=== PATIENT | female | born 1985 | race Caucasian/White ===

== ENCOUNTER 2018-11-04 23:22 | Emergency (ER) | payer MEDICAID, OTHER ==
[~2018-11-04] VITALS: Ht 162.6 cm; Wt 90.7 kg
[~2018-11-04 23:22] MED LIST: CYCL10TA9 PO; DICL75TA2 PO; TRM50T PO
[2018-11-04] MEDS ORDERED: morphine INJ 10 MG/ML 1ML (SYR OR VIAL) IM STA (23:39)
--- NOTE | 2018-11-04 23:46 | ED Lower Extremity ---
General Chief Complaint: Lower Extremity Stated Complaint: FELL AND POSSIBLY BROKE RT FIRST TOE Source: patient History of Present Illness Date Seen by Provider: November 04, 2018 Time Seen by Provider: 23:30 Initial Comments 32-year-old female presenting with complaints of right big toe pain. She states that she was going up steps when she missed a step and hit her toe. She has severe pain in that toe now. She had her friend drive her to the emergency department immediately. She has not taken anything for the pain. She states that the pain is very severe and is crying nonstop. She reports that she has had other broken bones in that this feels worse. She denies taking any chronic medications or having any allergies. Onset: just prior to arrival Severity: severe Pain/Injury Location: right 1st toe Modifying Factors: Worse With Movement Allergies and Home Medications Allergies Coded Allergies: No Known Drug Allergies (Unverified , 11/04/18) Home Medications Cyclobenzaprine Hcl 10 Mg Tablet, 1 EACH PO BID, (Reported) Diclofenac Sodium 75 Mg Tablet.dr, 75 MG PO BID, (Reported) Hydrocodone Bit/Acetaminophen 1 Tab Tab, 1 EACH PO Q6H PRN for PAIN-SEVERE For broken toe Prescribed by: MIGUELITO NGO on 11/05/18 0049 Tramadol Hcl 50 Mg Tab, 50 MG PO Q4-6HOURS PRN FOR PAIN Prescribed by: VALDEMAR OTOOLE on 04/22/11 0845 Patient Home Medication List Home Medication List Reviewed: Yes Review of Systems Constitutional: no symptoms reported EENTM: no symptoms reported Respiratory: no symptoms reported Cardiovascular: no symptoms reported Gastrointestinal: no symptoms reported Genitourinary: no symptoms reported Musculoskeletal: see HPI Skin: no symptoms reported Psychiatric/Neurological: Anxiety Past Gjausks-Lkgexc-Faalfw Hx Past Med/Social Hx: Reviewed Nursing Past Med/Soc Hx Patient Social History Recent Foreign Travel: No Contact w/Someone Who Travel: No Physical Exam Vital Signs Vital Signs - First Documented 11/04/18 23:31 Temp 99.9 Pulse 130 Resp 24 B/P (MAP) 150/113 (125) Pulse Ox 99 O2 Delivery Room Air Capillary Refill : Height, Weight, BMI Height: '" Weight: lbs. oz. kg; BMI Method:Stated General Appearance: WD/WN, severe distress (crying constantly complaining of pain in the right big toe) HEENT: PERRL/EOMI Neck: non-tender, supple Cardiovascular: normal peripheral pulses, tachycardia Respiratory: chest non-tender, lungs clear Feet: right foot bone tenderness (right big toe), right foot deformity ( angulation to the proximal portion of the right big toe), right foot limited range of motion (right big toe), right foot pain (right big toe) Neurologic/Tendon: normal sensation, responds to pain Neurologic/Psychiatric: alert, oriented x 3 Skin: normal color, warm/dry Progress/Results/Core Measures Results/Orders My Orders Orders - MIGUELITO NGO MD Morphine Injection (Morphine Injection (11/04/18 23:39) Elevate Affected Extremity (11/04/18 23:40) Foot 3 View Right (11/04/18 23:40) Fentanyl Injection (Sublimaze Injection (11/05/18 00:31) Rx-Hydrocodone/Apap 5-325 Mg (Rx-Vicodin (11/05/18 00:45) Crutches (11/05/18 00:39) Orthopedic Equiment (11/05/18 00:39) Fentanyl Injection (Sublimaze Injection (11/05/18 00:37) Rx-Hydrocodone/Apap 5-325 Mg (Rx-Vicodin (11/05/18 00:43) Vital Signs/I&O 11/04/18 11/05/18 23:31 01:05 Temp 99.9 98.9 Pulse 130 110 Resp 24 24 B/P (MAP) 150/113 (125) 136/98 (111) Pulse Ox 99 99 O2 Delivery Room Air Room Air Progress Progress Note #1: Progress Note order morphine 4 mg IM for her pain and check xrays of the foot and big toe. elevate extremity to help with pain and swelling Progress Note #2: Time: 00:24 Progress Note Reviewed with pt that her films show fracture of the proximal phalanx of her big toe. She states that Morphine does not help her pain and messes with her head more than help her pain so she requests something else for pain. Will try a dose of fentanyl and discharge on Hydrocodone 5 mg. Counseled on non weight bearing and to check with Ortho or Podiatry within 1 week about her fracture. In the meantime elevate her foot and use ice for pain and swelling. Hydrocodone for severe pain Diagnostic Imaging Diagonstic Imaging: Xray Plain Films/CT/US/NM/MRI: other (right foot) Comments spiral minimally displace fracture of the proximal phalanx of the right big toe. This does not appear to extend into the articulating surfaces. Reviewed: Reviewed by Me Departure Impression Primary Impression: Displaced fracture of proximal phalanx of right great toe, initial encounter for closed fracture Disposition: HOME, SELF-CARE Condition: Stable Departure-Patient Inst. Decision time for Depature: 00:50 Referrals: ADAM TELLES,LOCAL PHYSICIAN (PCP) Primary Care Physician Patient Instructions: Toe Fracture (DC) Add. Discharge Instructions: Follow up for the fractured toe within a week. Dr. Adam Telles with [place] [address] States is employee relation manager for [facility] and you could follow up with him or you could call Laith Durbin and see him about this fracture if you want since you have seen him before for the fracture in your hand. Try to keep your foot elevated above your waist level to help with pain and swelling. Ice 15-20 minutes every few hours will help with pain and swelling. Check with clinic for continued pain and problems. Remain non weight bearing on your right foot and use the boot to protect your toe and keep from walking on the foot. Use crutches to remain non weight bearing on your right foot. Use the Hydrocodone for severe pain. Avoid taking Acetaminophen or Tylenol while on the Hydrocodone as it already includes this in the medicine. All discharge instructions reviewed with patient and/or family. Voiced understanding. Scripts Hydrocodone Bit/Acetaminophen (Hydrocodone/Acetaminophen 5/325mg Tablet) 1 Tab Tab 1 EACH PO Q6H PRN for PAIN-SEVERE MDD 4 for 5 Days, #20 TAB 0 Refills For broken toe Prov: MIGUELITO NGO MD 11/05/18 MIGUELITO NGO MD November 04, 2018 23:46
[2018-11-05] MEDS ORDERED: fentaNYL INJECTION 100 MCG/2 ML AMP IM STA (00:31)
[2018-11-05] MEDS ORDERED: fentaNYL INJECTION 100 MCG/2 ML AMP ONE (00:37)
[2018-11-05] MEDS ORDERED: RX-HYDROCODONE/APAP 5/325 MG #4 TAB PK PO ONE (00:43)
[2018-11-05] MEDS ORDERED: RX-HYDROCODONE/APAP 5/325 MG #4 TAB PK PO PRN (00:45)
[2018-11-05] MEDS ORDERED: ACHD5005 PO (00:49)
[2018-11-05 01:05] VITALS: BP 136/98
--- NOTE | 2018-11-05 07:39 | Diagnostic Imaging Report ---
Indication: Stubbed right big toe going upstairs Findings: 3 views of the right foot demonstrates a mildly displaced oblique fracture through the proximal phalanx of the great toe. The distal phalanx appears normal. No foreign bodies are present. Impression: There is a mildly displaced oblique fracture through the proximal phalanx of the right great toe. Dictated by: Dictated on workstation # [id number]
== END 2018-11-05 01:05 | disposition home or self-care (01) ==
LOC: EDUNIT# 23:22 → ER FS 23:25
DX: S92.411A Displaced fracture of proximal phalanx of right great toe, initial encounter for closed fracture (principal); W10.8XXA Fall (on) (from) other stairs and steps, initial encounter; W22.09XA Striking against other stationary object, initial encounter
CPT/HCPCS: 73630

== ENCOUNTER 2020-12-24 18:58 | Inpatient (IN) | payer SELFPAY ==
[~2020-12-24] VITALS: Ht 164.5 cm; Wt 111.9 kg
[~2020-12-24 18:58] MED LIST changes: +ACHD5005 PO
[2020-12-24] MEDS ORDERED: LORazepam INJ 2 MG/ML (ATIVAN) VIAL IVP STA ×2 (19:05→22:15)
[2020-12-24] MEDS ORDERED: NS IV 1000 ML 1,000 ML IV STA ×2 (19:05→21:12)
--- NOTE | 2020-12-24 19:09 | ED General ---
General Source of Information: Patient Exam Limitations: Intoxication (methamphetamines and Seroquel) History of Present Illness Date Seen by Provider: Dec 24, 2020 Time Seen by Provider: 18:59 Initial Comments 35-year-old female presenting with complaints of methamphetamine abuse and Seroquel overdose. She was dropped off by a friend that stopped with her long enough to get her out of the car at the [address] and then drove off. She is anxious and agitated. She is not answering questions about if the medicines she took were for self harm or suicide attempt or just recreational use. She has complaint of muscle spasm and pain in legs and keeps jerking her legs and moving her arms and legs all over the bed thrashing around on the bed. Unable to obtain answers to history or more information about her presentation due to her intoxication from methamphetamines and drug overdose. Allergies and Home Medications Allergies Coded Allergies: No Known Drug Allergies (Unverified , 11/04/18) Home Medications Cyclobenzaprine Hcl 10 Mg Tablet, 1 EACH PO BID, (Reported) Diclofenac Sodium 75 Mg Tablet.dr, 75 MG PO BID, (Reported) Hydrocodone Bit/Acetaminophen 1 Tab Tab, 1 EACH PO Q6H PRN for PAIN-SEVERE For broken toe Prescribed by: MIGUELITO NGO on 11/05/18 0049 Tramadol Hcl 50 Mg Tab, 50 MG PO Q4-6HOURS PRN FOR PAIN Prescribed by: VALDEMAR OTOOLE on 04/22/11 0845 Patient Home Medication List Home Medication List Reviewed: Yes Review of Systems Review of Systems Constitutional: No fever unable to fully assess ROS due to patient agitation and intoxication from substance abuse Past Jabefqe-Vxvpog-Vjjfvp Hx Seasonal Allergies Seasonal Allergies: No Past Medical History Surgeries: Yes (Umbilical Hernia Repair) Section, Tonsillectomy Respiratory: Yes Asthma Cardiac: No Neurological: No Genitourinary: No Gastrointestinal: No Musculoskeletal: No Endocrine: No HEENT: No Cancer: No Psychosocial: Yes Anxiety, Depression Integumentary: No Blood Disorders: No Physical Exam Vital Signs Vital Signs - First Documented 12/24/20 19:03 Temp 36.3 Pulse 149 Resp 30 B/P (MAP) 133/111 (118) Pulse Ox 99 O2 Delivery Room Air Capillary Refill : Height, Weight, BMI Height: 5'4.00" Weight: 200lbs. 0oz. 90.858048wa; BMI Method:Stated General Appearance: Anxious, Obese, Other (thrashing around on the bed and crying out that her legs hurt. ) HEENT: PERRL/EOMI; No Moist Mucous Membranes (dry mucous membranes and missing upper teeth) Neck: Full Range of Motion, Normal Inspection, Non Tender, Supple Respiratory: Chest Non Tender, Lungs Clear, Normal Breath Sounds Cardiovascular: Normal Peripheral Pulses, Tachycardia Gastrointestinal: No Pulsatile Mass, Non Tender, Soft Rectal: Deferred Extremity: Normal Capillary Refill, Normal Range of Motion, No Pedal Edema Neurologic/Psychiatric: Alert, Other (pt would not answer orientation questions) Skin: Normal Color, Warm/Dry Procedures/Interventions Reason for Intubation: Airway protection Date of ETT Placement: Dec 24, 2020 Time of ETT Placement: 20:53 Intubation Method: orotracheal Tube Size: 7.5 Medications: Etomidate, Rocuronium, Succinylcholine, Versed Positive End Tide CO2: Yes Breath Sounds after Intubation: bilateral-equal Intubation Complications: oral-unsuccessful attempt (x1) Post Intubation Xray: Yes ETT above aylin. Radiologist rec withdraw 3 cm With patient still havng decreased mental status and agitated with concern for anti-psychotic overdose and methamphetamine overdose pt was intubated for airway protection. After Midazolam 5 mg IV, Etomidate 20 mg IV and Succinyl Choline 100 mg IV an attempt at orotracheal intubation was made using direct laryngoscope. She had air sounds in stomach and not in lungs. She maintained 100% O2 saturation. ETT withdrawn and new tube placed with assistance of Glidescope but she did require additional medicine so given 2 mg Midazolam, 50 mg Rocuronium. Then intubated on first attempt with Glidescope and 7.5 ETT 26 cm at upper lip. Secured tube in place after having equal breath sounds and good color change on ETCO2 detector. Placed on CO2 monitor and Ventilator. CXR obtained and recommendation from Radiologist to move the ETT back 3 cm. Progress/Results/Core Measures Suspected Sepsis SIRS Temperature: Pulse: Respiratory Rate: Laboratory Tests 12/24/20 19:07: White Blood Count 14.9H Blood Pressure / Mean: Laboratory Tests 12/24/20 19:07: Creatinine 1.59H, Platelet Count 369, Total Bilirubin 0.2 Results/Orders Lab Results Laboratory Tests Test 12/24/20 19:07 12/24/20 21:10 12/24/20 22:15 Range/Units White Blood Count 14.9 H 4.3-11.0 10^3/uL Red Blood Count 4.63 4.35-5.85 10^6/uL Hemoglobin 12.5 11.5-16.0 G/DL Hematocrit 38 35-52 % Mean Corpuscular Volume 83 80-99 FL Mean Corpuscular Hemoglobin 27 25-34 PG Mean Corpuscular Hemoglobin Concent 33 32-36 G/DL Red Cell Distribution Width 14.4 10.0-14.5 % Platelet Count 369 130-400 10^3/uL Mean Platelet Volume 10.3 7.4-10.4 FL Immature Granulocyte % (Auto) 0 % Neutrophils (%) (Auto) 73 42-75 % Lymphocytes (%) (Auto) 20 12-44 % Monocytes (%) (Auto) 5 0-12 % Eosinophils (%) (Auto) 1 0-10 % Basophils (%) (Auto) 1 0-10 % Neutrophils # (Auto) 10.9 H 1.8-7.8 X 10^3 Lymphocytes # (Auto) 2.9 1.0-4.0 X 10^3 Monocytes # (Auto) 0.8 0.0-1.0 X 10^3 Eosinophils # (Auto) 0.2 0.0-0.3 10^3/uL Basophils # (Auto) 0.1 0.0-0.1 10^3/uL Immature Granulocyte # (Auto) 0.1 0.0-0.1 10^3/uL Neutrophils % (Manual) 73 % Lymphocytes % (Manual) 21 % Monocytes % (Manual) 4 % Band Neutrophils 2 % Platelet Estimate ADEQUATE Percent Immature Platelet Fraction 0.0 0.0-7.6 % Blood Morphology Comment NORMAL Sodium Level 137 135-145 MMOL/L Potassium Level 3.4 L 3.6-5.0 MMOL/L Chloride Level 103 98-107 MMOL/L Carbon Dioxide Level 19 L 21-32 MMOL/L Anion Gap 15 H 5-14 MMOL/L Blood Urea Nitrogen 13 7-18 MG/DL Creatinine 1.59 H 0.60-1.30 MG/DL Estimat Glomerular Filtration Rate 37 BUN/Creatinine Ratio 8 Glucose Level 173 H 70-105 MG/DL Calcium Level 8.9 8.5-10.1 MG/DL Corrected Calcium 8.9 8.5-10.1 MG/DL Magnesium Level 1.9 1.6-2.4 MG/DL Total Bilirubin 0.2 0.1-1.0 MG/DL Aspartate Amino Transf (AST/SGOT) 12 5-34 U/L Alanine Aminotransferase (ALT/SGPT) 10 0-55 U/L Alkaline Phosphatase 97 40-136 U/L Total Protein 7.2 6.4-8.2 GM/DL Albumin 4.0 3.2-4.5 GM/DL Serum Test, Qualitative NEGATIVE NEGATIVE Salicylates Level < 0.3 L 5.0-20.0 MG/DL Acetaminophen Level < 10 L 10-30 UG/ML Serum Alcohol 10 <10 MG/DL Urine Color YELLOW Urine Clarity CLEAR Urine pH 5.0 5-9 Urine Specific [place] >=1.030 1.016-1.022 Urine Protein NEGATIVE NEGATIVE Urine Glucose (UA) NEGATIVE NEGATIVE Urine Ketones NEGATIVE NEGATIVE Urine Nitrite NEGATIVE NEGATIVE Urine Bilirubin NEGATIVE NEGATIVE Urine Urobilinogen 0.2 < = 1.0 MG/DL Urine Leukocyte Esterase NEGATIVE NEGATIVE Urine RBC (Auto) NEGATIVE NEGATIVE Urine RBC NONE /HPF Urine WBC 0-2 /HPF Urine Squamous Epithelial Cells RARE /HPF Urine Crystals NONE /LPF Urine Bacteria NEGATIVE /HPF Urine Casts NONE /LPF Urine Mucus LARGE H /LPF Urine Culture Indicated NO Urine Opiates Screen NEGATIVE NEGATIVE Urine Oxycodone Screen NEGATIVE NEGATIVE Urine Methadone Screen NEGATIVE NEGATIVE Urine Propoxyphene Screen NEGATIVE NEGATIVE Urine Barbiturates Screen NEGATIVE NEGATIVE Ur Tricyclic Antidepressants Screen POSITIVE H NEGATIVE Urine Phencyclidine Screen NEGATIVE NEGATIVE Urine Amphetamines Screen POSITIVE H NEGATIVE Urine Methamphetamines Screen POSITIVE H NEGATIVE Urine Benzodiazepines Screen POSITIVE H NEGATIVE Urine Cocaine Screen NEGATIVE NEGATIVE Urine Cannabinoids Screen POSITIVE H NEGATIVE Blood Gas Puncture Site RT.BRACHIAL Blood Gas Patient Temperature 36.6 Arterial Blood pH 7.41 7.37-7.43 Arterial Blood Partial Pressure CO2 32 L 35-45 MMHG Arterial Blood Partial Pressure O2 255 H 79-93 MMHG Arterial Blood HCO3 20 L 23-27 MMOL/L Arterial Blood Total CO2 21.3 21.0-31.0 MMOL/L Arterial Blood Oxygen Saturation 100 94-100 % Arterial Blood Base Excess -3.5 L -2.5-2.5 MMOL/L Rafael Test NA Blood Gas Ventilator Setting YES Blood Gas Inspired Oxygen 50% My Orders Orders - MIGUELITO NGO MD Ua Culture If Indicated (12/24/20 19:05) Cbc With Automated Diff (12/24/20 19:05) Comprehensive Metabolic Panel (12/24/20 19:05) Alcohol (12/24/20 19:05) Drug Screen Stat (Urine) (12/24/20 19:05) Acetaminophen (12/24/20 19:05) Salicylate (12/24/20 19:05) Ekg Tracing (12/24/20 19:05) Ed Iv/Invasive Line Start (12/24/20 19:05) Monitor-Rhythm Ecg Trace Only (12/24/20 19:05) Bh Status Checks/Observation Q15M (12/24/20 19:05) Magnesium (12/24/20 19:05) Ns Iv 1000 Ml (Sodium Chloride 0.9%) (12/24/20 19:05) Lorazepam Injection (Ativan Injection) (12/24/20 19:05) Hcg,Qualitative Serum (12/24/20 19:42) Manual Differential (12/24/20 19:07) Ventilator Settings Order (12/24/20 20:56) Intubation (12/24/20 20:56) Chest 1 View Ap/Pa Only (12/24/20 20:56) Arterial Blood Gas (12/24/20 20:58) Vázquez Cath (12/24/20 20:58) Ng Tube To Low Wall Suction (12/24/20 20:59) Propofol Drip (Icu) (Diprivan Drip (Icu) (12/24/20 20:59) Ns Iv 1000 Ml (Sodium Chloride 0.9%) (12/24/20 21:12) Creatine Kinase (12/24/20 22:15) Lorazepam Injection (Ativan Injection) (12/24/20 22:15) Vital Signs/I&O 12/24/20 12/24/20 12/24/20 19:03 21:39 23:32 Temp 36.3 Pulse 149 150 111 Resp 30 22 B/P (MAP) 133/111 (118) 188/136 134/87 Pulse Ox 99 100 O2 Delivery Room Air Mechanical Ventilator Capillary Refill : Progress Note #1: Progress Note check labs, ECG, CXR, UA and UDS. Give Ativan to help with agitation and anxity. IVF for tachycardia and hydration. Differential diagnosis suicide attempt by overdose of methamphetamines and antipsychotic, polysubstance abuse, dehydration, rhabdomyolysis Progress Note #2: Progress Note Pt did calm down some after ativan but when attempts to obtain full vital signs and finish with testing she was agitated and thrashing and flailing arms and legs again. Finally intubated pt to help with protecting airway and to fully assess pt for possible antipsychotic overdose and methamphetamine overdose. see nursing notes and MAR for times and meds. Pt intubated on second attempt by myself. Initial attempt was esophageal intubation and used Mac3 blade with Direct laryngoscope. Second attempt was successful with 7.5 ETT through the cords visualized with Glidescope. Pt tolerated procedure well without desaturation or immediate complication. Progress Note #3: Progress Note Discussed case with KAYLA Myrick, from poison control and he recommends monitoring urine output, CK level to check for rhabdomyolysis, repeat ECG in a few hours to see if she is having QT prolongation. 3 d/w Dr. Vick and she accepted for hospitalist service. Will arrange for ICU bed and call [facility] for assistance in management once she arrives at ICU in [facility]. No [facility] ambulance crews available for transport of patient so [facility] was contacted and came to potato picker patient for transport to ICU at [facility]. [id number] Mcgraw with [facility] about the patient for ICU consult care when she arrives in [place] ECG Initial ECG Impression Date: Dec 24, 2020 Initial ECG Impression Time: 20:57 Initial ECG Rate: 127 Initial ECG Rhythm: S.Tach Initial ECG Comparisson: No Previous ECG Available Comment Sinus tachycardia with a heart rate of 127 beats per minute. AL interval [address] elevation. QT interval 320 ms with a QTc interval 466 ms. No prior tracings available for comparison. Diagnostic Imaging Diagonstic Imaging: Xray Plain Films/CT/US/NM/MRI: chest Comments [facility] [place] NAME: SANDY ARENAS MED REC#: [id number] PT STATUS: REG ER : 1985 PHYSICIAN: MIGUELITO NGO MD ADMIT DATE: 12/24/20/ER FS Signed Date of Exam:12/24/20 CHEST 1 VIEW AP/PA ONLY EXAMINATION: Chest 1 view HISTORY: Intubation. COMPARISON: None available. FINDINGS: Endotracheal tube is visualized with the tip overlying the trachea approximately 1 cm above the aylin. Bibasilar opacities are present. No large pleural effusion or pneumothorax. The cardiac silhouette is unremarkable. Air is seen in the stomach. IMPRESSION: 1. Endotracheal tube with the tip overlying the trachea approximately 1 cm above the aylin. Recommend pulling back 3 cm. 2. Bibasilar opacities, which may represent atelectasis or infection. Aspiration can also have this appearance in the correct clinical setting. Dictated by: Dictated on workstation # [id number] Dict: 12/24/202108 Trans: 12/24/202115 [facility] [id number] Interpreted by: EMA RICE DO Electronically signed by: EMA RICE DO 12/24/202115 Reviewed: Reviewed by Me Critical Care Note Critical Care Total Time (minutes) 90 minutes Progress 90 minutes of critical care time was spent in direct care of the patient. This time excludes separately billable procedures. Time was spent in obtaining h istory from patient and medical records, ordering test and reviewing results, ordering interventions and reviewing response, discussion with consultants, documentation in the chart. Patient was at risk of neurologic compromise as well as cardiac compromise due to her overdose. She required my direct intervention and care of the patient on repeated occasions for a total of 90 minutes. Departure Communication (Admissions) Time/Spoke to Admitting Phy: 22:33 d/w Dr. Vick with hospitalist service and she accepted pt for admit to ICU as intubated overdose. Will consult E-Icu for assistance in management of vent and care in the ICU. Time/Spoke to Consulting Phy: 23:[address] Mcgraw from [facility] E-ICU about the patient so he had some information about her before she arrived in the ICU at [facility] Impression Primary Impression: Overdose of antipsychotic Qualified Codes: T43.504A - Poisoning by unspecified antipsychotics and neuroleptics, undetermined, initial encounter Additional Impressions: Methamphetamine intoxication Dehydration Disposition: 30 STILL A PATIENT Condition: Critical Admissions Decision to Admit Reason: Admit from ER (General) Decision to Admit/Date: Dec 24, 2020 Time/Decision to Admit Time: 22:33 Departure-Patient Inst. Referrals: NO,LOCAL PHYSICIAN (PCP/Family) Primary Care Physician MIGUELITO NGO MD Dec 24, 2020 19:09
[2020-12-24 19:40] LABS: BASOPHILS % (AUTO) 1 % (0-10); EOSINOPHILS # (AUTO) 0.2 10^3/uL (0.0-0.3); EOSINOPHILS % (AUTO) 1 % (0-10); HEMATOCRIT 38 % (35-52); HEMOGLOBIN 12.5 G/DL (11.5-16.0); LYMPHOCYTES # (AUTO) 2.9 X 10^3 (1.0-4.0); LYMPHOCYTES % (AUTO) 20 % (12-44); MEAN CORPUSCULAR HEMOGLOBIN 27 PG (25-34); MEAN CORPUSCULAR HGB CONC 33 G/DL (32-36); MEAN CORPUSCULAR VOLUME 83 FL (80-99); MEAN PLATELET VOLUME 10.3 FL (7.4-10.4); MONOCYTES # (AUTO) 0.8 X 10^3 (0.0-1.0); MONOCYTES % (AUTO) 5 % (0-12); NEUTROPHILS # (AUTO) 10.9 X 10^3 (1.8-7.8); NEUTROPHILS % (AUTO) 73 % (42-75); PLATELET COUNT 369 10^3/uL (130-400); WHITE BLOOD COUNT 14.9 10^3/uL (4.3-11.0)
[2020-12-24 19:41] LABS: BASOPHILS # (AUTO) 0.1 10^3/uL (0.0-0.1)
[2020-12-24 20:12] LABS: BILIRUBIN,TOTAL 0.2 MG/DL (0.1-1.0); BUN/CREATININE RATIO 8; CALCIUM 8.9 MG/DL (8.5-10.1); CARBON DIOXIDE 19 MMOL/L (21-32); CHLORIDE 103 MMOL/L (98-107); CREATININE SERUM 1.59 MG/DL (0.60-1.30); GFR ESTIMATED 37; GLUCOSE 173 MG/DL (70-105); POTASSIUM 3.4 MMOL/L (3.6-5.0); SODIUM 137 MMOL/L (135-145)
[2020-12-24 20:13] LABS: ACETAMINOPHEN < 10 UG/ML (10-30); ALANINE AMINOTRANSFERASE 10 U/L (0-55); ALKALINE PHOSPHATASE 97 U/L (40-136); SALICYLATE < 0.3 MG/DL (5.0-20.0); TOTAL PROTEIN 7.2 GM/DL (6.4-8.2)
[2020-12-24 20:38] LABS: BAND NEUTROPHILS 2 %; LYMPHOCYTES % (MANUAL) 21 %; MONOCYTES % (MANUAL) 4 %; NEUTROPHILS % (MANUAL) 73 %; PLATELET ESTIMATE ADEQUATE; RBC MORPH NORMAL
[2020-12-24] MEDS ORDERED: PROPOFOL DRIP (ICU) 100 ML IV STA (20:59)
--- NOTE | 2020-12-24 21:12 | Diagnostic Imaging Report ---
EXAMINATION: Chest 1 view HISTORY: Intubation. COMPARISON: None available. FINDINGS: Endotracheal tube is visualized with the tip overlying the trachea approximately 1 cm above the aylin. Bibasilar opacities are present. No large pleural effusion or pneumothorax. The cardiac silhouette is unremarkable. Air is seen in the stomach. IMPRESSION: 1. Endotracheal tube with the tip overlying the trachea approximately 1 cm above the aylin. Recommend pulling back 3 cm. 2. Bibasilar opacities, which may represent atelectasis or infection. Aspiration can also have this appearance in the correct clinical setting. Dictated by: Dictated on workstation # [id number]
[2020-12-24 21:30] LABS: BILIRUBIN,URINE NEGATIVE (NEGATIVE); CLARITY,URINE CLEAR; COLOR,URINE YELLOW; GLUCOSE, URINE (UA) NEGATIVE (NEGATIVE); KETONES,URINE NEGATIVE (NEGATIVE); LEUKOCYTE ESTERASE ,URINE NEGATIVE (NEGATIVE); NITRITE,URINE NEGATIVE (NEGATIVE); PROTEIN,URINE NEGATIVE (NEGATIVE)
[2020-12-24 21:31] LABS: BACTERIA,URINE NEGATIVE /HPF; SQUAMOUS EPITHELIAL CELL,UR RARE /HPF; WBC,URINE 0-2 /HPF
[2020-12-24 21:33] LABS: AMPHETAMINE SCREEN, URINE POSITIVE (NEGATIVE); BARBITURATE SCREEN URINE NEGATIVE (NEGATIVE); BENZODIAZEPINES SCREEN URINE POSITIVE (NEGATIVE); CANNABINOID SCREEN, URINE POSITIVE (NEGATIVE); COCAINE SCREEN URINE NEGATIVE (NEGATIVE); METHAMPHETAMINE SCREEN URINE S POSITIVE (NEGATIVE); OPIATE SCREEN URINE NEGATIVE (NEGATIVE); TRICYCLIC ANTIDEPRESSANTS SCRE POSITIVE (NEGATIVE)
[2020-12-24 21:34] LABS: METHADONE STAT NEGATIVE (NEGATIVE); OXYCODONE STAT NEGATIVE (NEGATIVE); PROPOXYPHENE STAT NEGATIVE (NEGATIVE)
[2020-12-24 22:25] LABS: ABG BASE EXCESS -3.5 MMOL/L (-2.5-2.5); ABG PCO2 32 MMHG (35-45); ABG PH 7.41 (7.37-7.43); ABG PO2 255 MMHG (79-93); ABG TCO2 21.3 MMOL/L (21.0-31.0)
[2020-12-24 22:26] LABS: ABG OXYGEN SATURATION 100 % (94-100); INSPIRED O2 50%; PATIENT TEMP 36.6; VENTILATOR YES
[2020-12-25] MEDS ORDERED: PROPOFOL DRIP (ICU) 100 ML IV ONE (00:55)
--- NOTE | 2020-12-25 01:24 | Tele-ICU Consult ---
History of Present Illness History of Present Illness Date Seen by Provider: Dec 25, 2020 Time Seen by Provider: 13:15 Date of Admission HPC: Transferred for Cannabis, meth., seoquel and BDP intoxication. intubated for airway protection at referring ER. PMH: drug abuse SH: smoking history unknown FH: Not avail. ROS: limited by patient's being intubated/sedated. PE: VSS HR 84 NSR BP 104/68 RR 14 97% O2 sat on 30%/+5. HEENT: No obvious masses, adenopathy or JVD. Skin: unremarkable. Results: Elevated wcc 14.9 Creat 1.59. Decreased K 3.4. A/P: Available chart/ vitals / labs reviewed Video assessment done using teleICU camera, rest of exam as per RN Respiratory: Continue present management with AC 14 TV 450 30%/+5. Monitor for increasing oxygenation needs. Will add restraints, AM CXR and labs. Needs proph: SQ hep, protonix. Critical Care: critically ill patient. Discussed with RN and other bedside health professionals incl ER MD. Asked RN to reach out to eICU if any questions or concerns later. Time spent with patientcoordination of care with other health professionals (mins): 30. Reason for Visit: see freetext note. Allergies and Home Medications Allergies Coded Allergies: No Known Drug Allergies (Unverified , 11/04/18) Home Medications Cyclobenzaprine Hcl 10 Mg Tablet, 1 EACH PO BID, (Reported) Diclofenac Sodium 75 Mg Tablet.dr, 75 MG PO BID, (Reported) Hydrocodone Bit/Acetaminophen 1 Tab Tab, 1 EACH PO Q6H PRN for PAIN-SEVERE For broken toe Prescribed by: MIGUELITO NGO on 11/05/18 0049 Tramadol Hcl 50 Mg Tab, 50 MG PO Q4-6HOURS PRN FOR PAIN Prescribed by: VALDEMAR OTOOLE on 04/22/11 0845 Past Medical/Social/Family Hx Patient Social History Substance use?: Yes Substance type: Methamphetamine Pt stated abuse/neglect: No Current Status Advance Directives: No Preferred Spoken Language: Danish Review of Systems Constitutional: no symptoms reported EENTM: see HPI Respiratory: no symptoms reported Cardiovascular: no symptoms reported Gastrointestinal: no symptoms reported Genitourinary: no symptoms reported Musculoskeletal: no symptoms reported Skin: no symptoms reported Psychiatric/Neurological: No Symptoms Reported Sepsis Event Evaluation Sepsis Stage: Ruled Out Height, Weight, BMI Height: 5'4.00" Weight: 200lbs. 0oz. 90.509807xq; BMI Method:Stated Exam Exam Patient acknowledged, consented, and participated in this virtual visit which was conducted using real time audio/video Vital Signs Date Time Temp Pulse Resp B/P (MAP) Pulse Ox O2 Delivery O2 Flow Rate FiO2 12/24/20 23:32 111 22 134/87 100 Mechanical Ventilator 12/24/20 21:39 150 188/136 12/24/20 19:03 36.3 149 30 133/111 (118) 99 Room Air I & O 12/25/20 06:59 Intake Total 2030 ml Balance 2030 ml Height & Weight Height: 5'4.00" Weight: 200lbs. 0oz. 90.109445dg; BMI Method:Stated General Appearance: Anxious, Obese, Other (thrashing around on the bed and crying out that her legs hurt. ) HEENT: PERRL/EOMI; No Moist Mucous Membranes (dry mucous membranes and missing upper teeth) Neck: Full Range of Motion, Normal Inspection, Non Tender, Supple Respiratory: Chest Non Tender, Lungs Clear, Normal Breath Sounds Cardiovascular: Normal Peripheral Pulses, Tachycardia Capillary Refill: Less Than 3 Seconds Peripheral Pulses: 1+ Dorsalis Pedis (R), 1+ Left Dors-Pedis (L) Extremity: Normal Capillary Refill, Normal Range of Motion, No Pedal Edema Neurologic/Psychiatric: Alert, Other (pt would not answer orientation quest ions) Skin: Normal Color, Warm/Dry Results Lab Laboratory Tests 12/24/20 19:07 Assessment/Plan Assessment/Plan see freetext note. Critical Care: Ventilator Management Time spent on discussion(mins): 0 Diagnosis/Problems Problems/Diagonsis (1) Overdose of antipsychotic Status: Acute Qualifiers: Qualified Codes: T43.504A - Poisoning by unspecified antipsychotics and neuroleptics, undetermined, initial encounter (2) Methamphetamine intoxication Status: Acute DAVIS CASTRO MD Dec 25, 2020 01:24
[2020-12-25] MEDS: NS IV 1000 ML 1,000 ML IV SCH ×4 (01:36→20:21)
[2020-12-25 01:43] VITALS: BP 101/69
[2020-12-25] MEDS ORDERED: RT-ALBUTEROL SULF 2.5 MG/3 ML PRE-MIX VIAL INH PRN (01:45)
[2020-12-25 05:26] LABS: ABG BASE EXCESS -3.9 MMOL/L (-2.5-2.5); ABG OXYGEN SATURATION 98 % (94-100); ABG PCO2 38 MMHG (35-45); ABG PH 7.35 (7.37-7.43); ABG PO2 89 MMHG (79-93)
[2020-12-25 05:27] LABS: ALLENS TEST YES-POS; INSPIRED O2 21%; PATIENT TEMP 36.5; VENTILATOR YES
[2020-12-25] MEDS: KCL 20 MEQ TAB (K-DUR) PO SCH (06:37)
[2020-12-25] MEDS: inSUlin ASPART (NovoLOG) 1 UNIT/0.01 ML (CHARGE PER UNIT) SC SCH ×3 (06:37→18:12)
--- NOTE | 2020-12-25 07:26 | Diagnostic Imaging Report ---
EXAM: CHEST 1 VIEW, AP/PA ONLY INDICATION: Ventilator. ICU management. COMPARISON: Chest radiograph 12/24/2020. FINDINGS: ETT tip approximately 1 cm from the aylin. NG tube tip and side-port in stomach. Low lung volumes. Normal heart size. No focal pulmonary opacity. No pleural effusion or pneumothorax. IMPRESSION: 1. ETT tip has been slightly withdrawn and is approximately 1 cm from the aylin. 2. NG tube in the expected location. 3. Low lung volumes. Dictated by: Dictated on workstation # [id number]
[2020-12-25 08:06] LABS: BASOPHILS # (AUTO) 0.1 10^3/uL (0.0-0.1); BASOPHILS % (AUTO) 1 % (0-10); EOSINOPHILS # (AUTO) 0.4 10^3/uL (0.0-0.3); EOSINOPHILS % (AUTO) 3 % (0-10); HEMATOCRIT 37 % (35-52); HEMOGLOBIN 11.6 g/dL (11.5-16.0); LYMPHOCYTES # (AUTO) 2.5 10^3/uL (1.0-4.0); LYMPHOCYTES % (AUTO) 19 % (12-44); MEAN CORPUSCULAR HEMOGLOBIN 27 pg (25-34); MEAN CORPUSCULAR HGB CONC 31 g/dL (32-36); MEAN CORPUSCULAR VOLUME 87 fL (80-99); MONOCYTES # (AUTO) 0.9 10^3/uL (0.0-1.0); MONOCYTES % (AUTO) 7 % (0-12); NEUTROPHILS # (AUTO) 9.5 10^3/uL (1.8-7.8); NEUTROPHILS % (AUTO) 71 % (42-75); PLATELET COUNT 303 10^3/uL (130-400); WHITE BLOOD COUNT 13.5 10^3/uL (4.3-11.0)
[2020-12-25 08:36] LABS: ALBUMIN 3.3 GM/DL (3.2-4.5)
[2020-12-25 08:37] LABS: CHLORIDE 112 MMOL/L (98-107); POTASSIUM 3.3 MMOL/L (3.6-5.0); SODIUM 143 MMOL/L (135-145)
[2020-12-25 08:38] LABS: CALCIUM 7.9 MG/DL (8.5-10.1)
[2020-12-25 08:39] LABS: GLUCOSE 81 MG/DL (70-105); TOTAL PROTEIN 5.9 GM/DL (6.4-8.2)
[2020-12-25 08:40] LABS: CARBON DIOXIDE 22 MMOL/L (21-32)
[2020-12-25 08:41] LABS: BILIRUBIN,TOTAL 0.4 MG/DL (0.1-1.0)
[2020-12-25 08:42] LABS: ALKALINE PHOSPHATASE 74 U/L (40-136)
[2020-12-25 08:43] LABS: CREATININE SERUM 0.69 MG/DL (0.60-1.30); GFR ESTIMATED > 60
[2020-12-25 08:44] LABS: BUN/CREATININE RATIO 13
[2020-12-25 08:46] LABS: ALANINE AMINOTRANSFERASE 11 U/L (0-55)
[2020-12-25] MEDS: POTASSIUM CL 10MEQ/50ML IVPB 50 ML IV SCH ×2 (09:08→09:12)
[2020-12-25] MEDS: PANTOPRAZOLE 40 MG (PROTONIX) VIAL IV SCH ×2 (09:08→20:20)
[2020-12-25] MEDS: MAGNESIUM 1 GM/100 ML IVPB 100 ML IV SCH (09:10)
[2020-12-25] MEDS: LORazepam INJ 2 MG/ML (ATIVAN) VIAL IVP PRN ×2 (09:14→17:53)
--- NOTE | 2020-12-25 10:19 | Tele-ICU Progress Note ---
Subjective Date Seen by a Provider: Dec 25, 2020 Time Seen by a Provider: 10:18 Sepsis Event Evaluation Height, Weight, BMI Height: 5'4.00" Weight: 200lbs. 0oz. 90.475011ob; 45.08 BMI Method:Stated Exam Exam Patient acknowledged, consented, and participated in this virtual visit which was conducted using real time audio/video Vital Signs Date Time Temp Pulse Resp B/P (MAP) Pulse Ox O2 Delivery O2 Flow Rate FiO2 12/25/20 10:00 88 15 112/75 (87) 99 Mechanical Ventilator 21.00 12/25/20 09:35 86 16 99 21 12/25/20 09:00 82 15 109/75 (86) 100 Mechanical Ventilator 21.00 12/25/20 08:15 95 Mechanical Ventilator 21 12/25/20 08:06 81 110/77 12/25/20 08:00 81 20 110/77 (88) 100 Mechanical Ventilator 21.00 12/25/20 07:47 36.8 12/25/20 07:00 78 13 97/66 (76) 100 Mechanical Ventilator 21.00 12/25/20 06:52 80 12/25/20 06:19 79 14 100 21 12/25/20 06:00 80 14 97/63 (74) 100 Mechanical Ventilator 21.00 12/25/20 05:00 84 15 106/67 (80) 100 Mechanical Ventilator 21.00 12/25/20 04:44 103/62 12/25/20 04:00 75 14 101/67 (78) 100 Mechanical Ventilator 21.00 12/25/20 04:00 98 Mechanical Ventilator 21 12/25/20 04:00 36.5 12/25/20 03:00 71 14 90/64 (71) 100 Mechanical Ventilator 21.00 12/25/20 02:45 70 14 90/64 (70) 100 Mechanical Ventilator 21.00 12/25/20 02:30 71 13 91/63 (72) 100 Mechanical Ventilator 21.00 12/25/20 02:15 72 14 93/59 (65) 98 Mechanical Ventilator 21.00 12/25/20 02:08 73 14 98 21 12/25/20 02:08 73 98/61 12/25/20 02:00 74 14 98/61 (72) 99 Mechanical Ventilator 21.00 12/25/20 01:45 76 13 101/67 (79) 99 Mechanical Ventilator 21.00 12/25/20 01:43 36.4 80 97 21 12/25/20 01:37 80 101/69 12/25/20 01:30 80 14 101/69 (80) 97 Mechanical Ventilator 21.00 12/25/20 01:20 82 14 97 21 12/25/20 01:15 Mechanical Ventilator 21.00 12/25/20 01:15 81 14 104/68 (77) 98 Mechanical Ventilator 21.00 12/25/20 01:00 36.4 82 14 112/40 (64) 97 Mechanical Ventilator 30.00 12/25/20 01:00 80 12/25/20 00:55 Mechanical Ventilator 30 12/24/20 23:32 111 22 134/87 100 Mechanical Ventilator 12/24/20 21:39 150 188/136 12/24/20 19:03 36.3 149 30 133/111 (118) 99 Room Air I & O 12/25/20 07:00 Intake Total 2030 ml Output Total 425 ml Balance 1605 ml Height & Weight Height: 5'4.00" Weight: 200lbs. 0oz. 90.175623xs; 45.08 BMI Method:Stated General Appearance: Anxious, Obese, Other (thrashing around on the bed and crying out that her legs hurt. ) HEENT: PERRL/EOMI; No Moist Mucous Membranes (dry mucous membranes and missing upper teeth) Neck: Full Range of Motion, Normal Inspection, Non Tender, Supple Respiratory: Chest Non Tender, Lungs Clear, Normal Breath Sounds Cardiovascular: Normal Peripheral Pulses, Tachycardia Capillary Refill: Less Than 3 Seconds Peripheral Pulses: 1+ Dorsalis Pedis (R), 1+ Left Dors-Pedis (L) Extremity: Normal Capillary Refill, Normal Range of Motion, No Pedal Edema Neurologic/Psychiatric: Alert, Other (pt would not answer orientation questions) Skin: Normal Color, Warm/Dry Results Lab Laboratory Tests 12/24/20 19:07 12/25/20 07:55 Assessment/Plan Assessment/Plan (Tele-ICU Physician , Progress Note ) Available chart/ vitals / labs / Images reviewed Video assessment done using teleICU camera, rest of exam as per RN Discussed with RN. Events overnight: Afebrile, I/O VENT SETTINGS. AC 14 TV 450 30%/+5. ABG reviewed Sedation: RASS Pressors: Drips: PROPOFOL 35-40, ativan prn Consultants: Hospital course: 12/25-Transferred for Cannabis, meth., seroquel and BDP intoxication. intubated for airway protection at referring ER. Intubated: 12/25 SBT vital /Cardiovascular Stability/Sedation Score/FI02/PEEP/ABG/CXR reviewed - not ready A/P Cannabis, meth., seroquel and BDP intoxication. - monnitor for arrithmias - OTc WNL - benzo , propofol and morphine prn - VERY AGITATED WITH WEANING PROPOFOL , NOT FOLLOW COMMANDS , MOVES ALL EXTREMITIES Acute resp failure - intubated for airway protection - to extubate whrn mental status allow replace and monitor lytes Lines : , (Central Line Necessity Reviewed) Vázquez: OG: Analgesia: mophine Sedation: as above HOB Elevation: confirmed Nutrition: manager process[o VTE Prophylaxis: hep Stress Ulcer Prophylaxis: ppi Glycemic Control: + Plans in collaboration with bedside consultants and IM MDs. Discussed with RN to reach out if any questions or concerns A total of 27 minutes of critical care time was devoted to this patient today, required to treat and/or prevent further deterioration of critical care condition ( as above ) . MONALISA HUBBARD MD Dec 25, 2020 10:19
[2020-12-25] MEDS: morphine INJ 4 MG/ML 1 ML (VIAL/SYRINGE) IVP PRN (11:43)
[2020-12-25 14:12] VITALS: BP 93/63
--- NOTE | 2020-12-25 14:25 | History & Physical-Hospitalist ---
History of Present Illness HPI/Chief Complaint Tracey Dumont is a 35 year old female who presented with altered mental status. She was reportedly dropped off by a "friend" in front of the [place] ER. She had reportedly told the ER that she had taken methamphetamine and Seroquel. Her level of consciousness decreased and she required intubation. Upon my examination she is intubated and unable to provide any history. Source: patient Exam Limitations: no limitations Date Seen 12/25/20 Time Seen by a Provider: 08:50 Attending Physician Sabra Vick DO PCP No,Local Physician Referring Physician Date of Admission Dec 25, 2020 at 00:53 Home Medications & Allergies Home Medications Reviewed patient Home Medication Reconciliation performed by pharmacy medication reconciliations nursing technician and/or nursing. Patients Allergies have been reviewed. Allergies Allergies Coded Allergies No Known Drug Allergies (Unverified11/04/18) Past Kgkoezp-Bxxbwg-Hamuqs Hx Patient Social History Substance use?: Yes Substance type: Methamphetamine, Marijuana Pt feels they are or have been: Unable to obtain Seasonal Allergies Seasonal Allergies: No Current Status status: No status: Unable to obtain Advance Directives: Unable to obtain Communicates: Unable To Communicate Primary Language: Gibraltarian Preferred Spoken Language: Gibraltarian Is interpretation needed?: Unable to obtain Past Medical History Surgeries: Section, Tonsillectomy Asthma Anxiety, Depression Blood Disorders: No Family Medical History Reviewed Nursing Family Hx Review of Systems ROS-Unable to Obtain: intubated and sedated Constitutional: see HPI Physical Exam Physical Exam Vital Signs Vital Signs - First Documented 12/24/20 12/25/20 12/25/20 19:03 00:55 01:00 Temp 36.3 Pulse 149 Resp 30 B/P (MAP) 133/111 (118) Pulse Ox 99 O2 Delivery Room Air O2 Flow Rate 30.00 FiO2 30 Capillary Refill : Less Than 3 Seconds Height, Weight, BMI Height: 5'4.00" Weight: 200lbs. 0oz. 90.270460kf; 45.08 BMI Method:Stated General Appearance: No Apparent Distress, Obese, Other (intubated and sedated) Eyes: Bilateral Eye Normal Inspection, Bilateral Eye Other (pinpoint pupils) HEENT: Other (endotracheal tube in place) Neck: Normal Inspection, Supple Respiratory: Lungs Clear, Normal Breath Sounds, No Respiratory Distress, Other (intubated and mechanically ventilated) Cardiovascular: Regular Rate, Rhythm, No Edema, No Murmur Gastrointestinal: Normal Bowel Sounds, Soft Extremity: Normal Inspection, No Pedal Edema Neurologic/Psychiatric: Other (sedated) Skin: Normal Color, Warm/Dry Results Results/Procedures Labs Laboratory Tests 12/24/20 19:07 12/25/20 07:55 Patient resulted labs reviewed. Imaging: Reviewed Imaging Report Assessment/Plan Admission Diagnosis Polysubstance overdose Admission Status: Inpatient Order (span 2 midnights) Reason for Inpatient Admission: Overdose requiring ventilator Assessment and Plan Polysubstance overdose Endotracheally intubated UDS positive for methamphetamine, amphetamine, benzodiazepine, tricyclics, cannabinoids Required intubation on arrival Continue sedation Wean sedation as able and extubate when possible Social work consulted, appreciate assistance Morbidly obese Clinically significant, no acute management needs DVT prophylaxis: Heparin Critical Care Critically Ill Patient Diagnosis/Problems Diagnosis/Problems (1) Polysubstance overdose Status: Acute Qualifiers: Encounter type: initial encounter Injury intent: undetermined intent Qualified Codes: T50.904A - Poisoning by unspecified drugs, medicaments and biological substances, undetermined, initial encounter SIRI INFANTE MD Dec 25, 2020 14:25
[2020-12-25 19:00] VITALS: BP 100/61
[2020-12-25 21:50] VITALS: BP 101/68
[2020-12-26] MEDS: inSUlin ASPART (NovoLOG) 1 UNIT/0.01 ML (CHARGE PER UNIT) SC SCH ×3 (00:53→18:25)
[2020-12-26] MEDS: morphine INJ 4 MG/ML 1 ML (VIAL/SYRINGE) IVP PRN ×2 (01:03→09:58)
[2020-12-26 02:25] VITALS: BP 104/68
[2020-12-26 03:56] LABS: ABG BASE EXCESS -4.6 MMOL/L (-2.5-2.5); ABG OXYGEN SATURATION 84 % (94-100); ABG PCO2 38 MMHG (35-45); ABG PO2 51 MMHG (79-93); ABG TCO2 21.1 MMOL/L (21.0-31.0)
[2020-12-26 03:57] LABS: ALLENS TEST YES-POS; INSPIRED O2 21%; PATIENT TEMP 37.7; VENTILATOR YES
[2020-12-26 04:00] LABS: ABG PH 7.34 (7.37-7.43)
[2020-12-26] MEDS: NS IV 1000 ML 1,000 ML IV SCH ×4 (04:03→20:10)
[2020-12-26 06:50] VITALS: BP 116/77
[2020-12-26] MEDS: PANTOPRAZOLE 40 MG (PROTONIX) VIAL IV SCH ×2 (08:15→20:10)
[2020-12-26 08:45] LABS: BASOPHILS # (AUTO) 0.1 10^3/uL (0.0-0.1); BASOPHILS % (AUTO) 0 % (0-10); EOSINOPHILS # (AUTO) 0.2 10^3/uL (0.0-0.3); EOSINOPHILS % (AUTO) 2 % (0-10); HEMATOCRIT 34 % (35-52); HEMOGLOBIN 10.4 g/dL (11.5-16.0); LYMPHOCYTES # (AUTO) 1.9 10^3/uL (1.0-4.0); LYMPHOCYTES % (AUTO) 14 % (12-44); MEAN CORPUSCULAR HEMOGLOBIN 27 pg (25-34); MEAN CORPUSCULAR HGB CONC 31 g/dL (32-36); MEAN CORPUSCULAR VOLUME 89 fL (80-99); MEAN PLATELET VOLUME 10.4 fL (9.0-12.2); MONOCYTES # (AUTO) 0.9 10^3/uL (0.0-1.0); MONOCYTES % (AUTO) 6 % (0-12); NEUTROPHILS # (AUTO) 10.7 10^3/uL (1.8-7.8); NEUTROPHILS % (AUTO) 78 % (42-75); PLATELET COUNT 297 10^3/uL (130-400); WHITE BLOOD COUNT 13.8 10^3/uL (4.3-11.0)
[2020-12-26 09:06] LABS: CHLORIDE 114 MMOL/L (98-107); POTASSIUM 3.6 MMOL/L (3.6-5.0); SODIUM 140 MMOL/L (135-145)
[2020-12-26 09:08] LABS: CALCIUM 7.7 MG/DL (8.5-10.1); GLUCOSE 82 MG/DL (70-105)
[2020-12-26 09:10] LABS: CARBON DIOXIDE 19 MMOL/L (21-32)
[2020-12-26 09:12] LABS: CREATININE SERUM 0.64 MG/DL (0.60-1.30); GFR ESTIMATED > 60; PHOSPHORUS 2.3 MG/DL (2.3-4.7)
[2020-12-26 09:13] LABS: BUN/CREATININE RATIO 6
[2020-12-26 09:15] LABS: MAGNESIUM 1.9 MG/DL (1.6-2.4)
[2020-12-26] MEDS: POTASSIUM CL 10MEQ/50ML IVPB 50 ML IV SCH ×3 (09:24→12:05)
[2020-12-26] MEDS: KCL 20 MEQ TAB (K-DUR) PO SCH (09:24)
[2020-12-26] MEDS: MAGNESIUM 1 GM/100 ML IVPB 100 ML IV SCH (09:24)
[2020-12-26 09:31] VITALS: BP 132/85
[2020-12-26] MEDS: LORazepam INJ 2 MG/ML (ATIVAN) VIAL IVP PRN (11:57)
[2020-12-26 12:51] VITALS: BP 149/99
--- NOTE | 2020-12-26 13:05 | Tele-ICU Progress Note ---
Subjective Date Seen by a Provider: Dec 26, 2020 Time Seen by a Provider: 09:15 Sepsis Event Evaluation Height, Weight, BMI Height: 5'4.00" Weight: 200lbs. 0oz. 90.190408jx; 45.08 BMI Method:Stated Exam Exam Patient acknowledged, consented, and participated in this virtual visit which was conducted using real time audio/video Vital Signs Date Time Temp Pulse Resp B/P (MAP) Pulse Ox O2 Delivery O2 Flow Rate FiO2 12/26/20 12:00 96 Mechanical Ventilator 25 12/26/20 12:00 133 23 149/99 (116) 94 Mechanical Ventilator 25.00 12/26/20 11:00 101 18 129/90 (103) 95 Mechanical Ventilator 25.00 12/26/20 10:00 106 23 125/93 (104) 97 Mechanical Ventilator 25.00 12/26/20 09:39 Mechanical Ventilator 25.00 12/26/20 09:31 93 17 98 21 12/26/20 09:00 93 15 132/85 (101) 98 Mechanical Ventilator 30.00 12/26/20 08:00 92 16 128/87 (101) 99 Mechanical Ventilator 30.00 12/26/20 08:00 100 Mechanical Ventilator 30 12/26/20 07:31 37.9 12/26/20 07:00 89 12/26/20 07:00 89 17 124/79 (94) 99 Mechanical Ventilator 30.00 12/26/20 06:50 89 16 99 21 12/26/20 06:00 90 14 116/77 (94) 98 Mechanical Ventilator 30.00 12/26/20 05:47 92 108/71 12/26/20 05:00 88 16 108/71 (84) 100 Mechanical Ventilator 30.00 12/26/20 04:10 93 17 94 Mechanical Ventilator 30.00 12/26/20 04:00 98 Mechanical Ventilator 30 12/26/20 04:00 90 15 105/67 (84) 94 Mechanical Ventilator 21.00 12/26/20 03:00 94 15 105/68 (83) 95 Mechanical Ventilator 21.00 12/26/20 02:25 94 16 93 21 12/26/20 02:00 92 16 104/68 (82) 94 Mechanical Ventilator 21.00 12/26/20 01:05 93 102/64 12/26/20 01:00 94 15 102/64 (77) 94 Mechanical Ventilator 21.00 12/26/20 01:00 94 12/26/20 00:00 96 19 108/70 (83) 95 Mechanical Ventilator 21.00 12/25/20 23:59 98 Mechanical Ventilator 21 12/25/20 23:00 90 16 111/70 (84) 95 Mechanical Ventilator 21.00 12/25/20 22:00 90 16 103/68 (80) 95 Mechanical Ventilator 21.00 12/25/20 21:50 92 17 95 21 12/25/20 21:00 90 17 104/68 (80) 96 Mechanical Ventilator 21.00 12/25/20 20:22 90 100/60 12/25/20 20:12 37.8 12/25/20 20:00 92 19 100/59 (73) 95 Mechanical Ventilator 21.00 12/25/20 20:00 98 Mechanical Ventilator 21 12/25/20 19:00 92 16 100/56 (71) 95 Mechanical Ventilator 21.00 12/25/20 19:00 92 12/25/20 19:00 92 17 95 21 12/25/20 18:00 92 18 109/73 (85) 98 Mechanical Ventilator 21.00 12/25/20 17:53 93 105/65 12/25/20 17:00 89 18 101/65 (77) 96 Mechanical Ventilator 21.00 12/25/20 16:15 37.6 12/25/20 16:00 87 17 96/65 (75) 97 Mechanical Ventilator 21.00 12/25/20 16:00 100 Mechanical Ventilator 21 12/25/20 15:00 82 15 106/65 (79) 99 Mechanical Ventilator 21.00 12/25/20 14:31 80 103/65 12/25/20 14:12 86 15 98 21 12/25/20 14:00 83 15 93/66 (75) 99 Mechanical Ventilator 21.00 I & O 12/26/20 07:00 Intake Total 3300 ml Output Total 1500 ml Balance 1800 ml Height & Weight Height: 5'4.00" Weight: 200lbs. 0oz. 90.128537lr; 45.08 BMI Method:Stated General Appearance: No Apparent Distress, Obese, Other (intubated and sedated) HEENT: Other (endotracheal tube in place) Neck: Normal Inspection, Supple Respiratory: Lungs Clear, Normal Breath Sounds, No Respiratory Distress, Other (intubated and mechanically ventilated) Cardiovascular: Regular Rate, Rhythm, No Edema, No Murmur Capillary Refill: Less Than 3 Seconds Peripheral Pulses: 1+ Dorsalis Pedis (R), 1+ Left Dors-Pedis (L) Extremity: Normal Inspection, No Pedal Edema Neurologic/Psychiatric: Other (sedated) Skin: Normal Color, Warm/Dry Results Lab Laboratory Tests 12/24/20 19:07 12/25/20 07:55 12/26/20 08:35 Assessment/Plan Assessment/Plan (Tele-ICU Physician , Progress Note ) Available chart/ vitals / labs / Images reviewed Video assessment done using teleICU camera, rest of exam as per RN Discussed with RN. Events overnight: Afebrile, I/O VENT SETTINGS. AC 14 TV 450 30%/+5. ABG reviewed Sedation: RASS Pressors: Drips: PROPOFOL 35-40, ativan prn Consultants: Hospital course: 12/25-Transferred for Cannabis, meth., seroquel and BDP intoxication. intubated for airway protection at referring ER. Intubated: 12/25 SBT vital /Cardiovascular Stability/Sedation Score/FI02/PEEP/ABG/CXR reviewed - will tray when more awake A/P Cannabis, meth., seroquel and BDP intoxication. - monnitor for arrithmias - OTc WNL - benzo , propofol and morphine prn - WEANING PROPOFOL Acute resp failure - intubated for airway protection - to extubate whrn mental status allow replace and monitor lytes Lines : , (Central Line Necessity Reviewed) Vázquez: OG: Analgesia: mophine Sedation: as above HOB Elevation: confirmed Nutrition: stonemason apprentice[o VTE Prophylaxis: hep Stress Ulcer Prophylaxis: ppi Glycemic Control: + Plans in collaboration with bedside consultants and IM MDs. Discussed with RN to reach out if any questions or concerns A total of 27 minutes of critical care time was devoted to this patient today, required to treat and/or prevent further deterioration of critical care condition ( as above ) . MONALISA HUBBARD MD Dec 26, 2020 13:05
--- NOTE | 2020-12-26 18:22 | Progress Note - Hospitalist ---
Subjective HPI/CC On Admission Date Seen by Provider: Dec 26, 2020 Time Seen by Provider: 09:20 Tracey Dumont is a 35 year old female who presented with altered mental status. She was reportedly dropped off by a "friend" in front of the [place] ER. She had reportedly told the ER that she had taken methamphetamine and Seroquel. Her level of consciousness decreased and she required intubation. Upon my examination she is intubated and unable to provide any history. Subjective/Events-last exam She remains intubated and sedated. She is awake but not able to follow commands. Objective Exam Vital Signs Vital Signs Date Time Temp Pulse Resp B/P (MAP) Pulse Ox O2 Delivery O2 Flow Rate FiO2 12/26/20 17:37 Nasal Cannula 2.00 12/26/20 17:00 94 16 94/61 (72) 99 12/26/20 16:00 36.6 12/26/20 12:51 25 Capillary Refill : Less Than 3 Seconds General Appearance: No Apparent Distress, Obese HEENT: PERRL/EOMI, Other (endotracheal tube in place) Neck: Normal Inspection, Supple Respiratory: Lungs Clear, Normal Breath Sounds, No Respiratory Distress, Other (intubated and mechanically ventilated) Cardiovascular: Regular Rate, Rhythm, No Edema, No Murmur Gastrointestinal: Normal Bowel Sounds, Soft Extremity: Normal Inspection, No Pedal Edema Neurologic/Psychiatric: Other (sedated, awake, uncooperative, not following commands) Skin: Normal Color, Warm/Dry Results/Procedures Lab Laboratory Tests 12/26/20 08:35 Patient resulted labs reviewed. Imaging: Reviewed Imaging Report Assessment/Plan Assessment and Plan Assess & Plan/Chief Complaint Polysubstance overdose Endotracheally intubated UDS positive for methamphetamine, amphetamine, benzodiazepine, tricyclics, cannabinoids Unclear if accidental or intentional overdose Required intubation on arrival Weaning sedation, possible extubation today Social work consulted, appreciate assistance Morbidly obese Clinically significant, no acute management needs DVT prophylaxis: Heparin Critical Care Critically Ill Patient Diagnosis/Problems Diagnosis/Problems (1) Polysubstance overdose Status: Acute Qualifiers: Encounter type: initial encounter Injury intent: undetermined intent Qualified Codes: T50.904A - Poisoning by unspecified drugs, medicaments and biological substances, undetermined, initial encounter SIRI INFANTE MD Dec 26, 2020 18:22
[2020-12-27] MEDS: inSUlin ASPART (NovoLOG) 1 UNIT/0.01 ML (CHARGE PER UNIT) SC SCH ×2 (00:18→03:33)
[2020-12-27 03:21] LABS: CHLORIDE 112 MMOL/L (98-107); SODIUM 140 MMOL/L (135-145)
[2020-12-27 03:23] LABS: CALCIUM 7.6 MG/DL (8.5-10.1); GLUCOSE 84 MG/DL (70-105)
[2020-12-27 03:25] LABS: CARBON DIOXIDE 14 MMOL/L (21-32)
[2020-12-27 03:27] LABS: CREATININE SERUM 0.55 MG/DL (0.60-1.30); GFR ESTIMATED > 60
[2020-12-27 03:28] LABS: BUN/CREATININE RATIO 4
[2020-12-27 03:29] LABS: MAGNESIUM 1.9 MG/DL (1.6-2.4)
[2020-12-27] MEDS: MAGNESIUM 1 GM/100 ML IVPB 100 ML IV SCH (03:32)
[2020-12-27] MEDS: POTASSIUM CL 10MEQ/50ML IVPB 50 ML IV SCH (03:32)
[2020-12-27] MEDS: KCL 20 MEQ TAB (K-DUR) PO SCH (03:33)
[2020-12-27 04:11] LABS: BASOPHILS # (AUTO) 0.1 10^3/uL (0.0-0.1); BASOPHILS % (AUTO) 1 % (0-10); EOSINOPHILS # (AUTO) 0.4 10^3/uL (0.0-0.3); EOSINOPHILS % (AUTO) 4 % (0-10); HEMATOCRIT 33 % (35-52); HEMOGLOBIN 10.4 g/dL (11.5-16.0); LYMPHOCYTES % (AUTO) 19 % (12-44); MEAN CORPUSCULAR HEMOGLOBIN 27 pg (25-34); MEAN CORPUSCULAR HGB CONC 31 g/dL (32-36); MEAN CORPUSCULAR VOLUME 86 fL (80-99); MEAN PLATELET VOLUME 10.6 fL (9.0-12.2); MONOCYTES # (AUTO) 0.7 10^3/uL (0.0-1.0); MONOCYTES % (AUTO) 7 % (0-12); NEUTROPHILS # (AUTO) 7.7 10^3/uL (1.8-7.8); NEUTROPHILS % (AUTO) 70 % (42-75); PLATELET COUNT 280 10^3/uL (130-400)
[2020-12-27] MEDS: NS IV 1000 ML 1,000 ML IV SCH (06:52)
[2020-12-27] MEDS: PANTOPRAZOLE 40 MG (PROTONIX) VIAL IV SCH (10:26)
--- NOTE | 2020-12-27 10:43 | Tele-ICU Progress Note ---
Subjective Date Seen by a Provider: Dec 27, 2020 Time Seen by a Provider: 10:43 Sepsis Event Evaluation Height, Weight, BMI Height: 5'4.00" Weight: 200lbs. 0oz. [id number]; 45.08 BMI Method:Stated Exam Exam Patient acknowledged, consented, and participated in this virtual visit which was conducted using real time audio/video Vital Signs Date Time Temp Pulse Resp B/P (MAP) Pulse Ox O2 Delivery O2 Flow Rate FiO2 12/27/20 09:00 85 14 90/58 (69) 96 Room Air 12/27/20 08:00 95 Room Air 12/27/20 08:00 37.6 12/27/20 08:00 87 13 90 Room Air 12/27/20 07:00 89 16 113/72 (86) 96 Room Air 12/27/20 06:37 96 12/27/20 06:00 96 19 105/66 (79) 97 Room Air 12/27/20 05:00 88 21 130/86 (101) 95 Room Air 12/27/20 04:00 36.7 12/27/20 04:00 95 Room Air 12/27/20 04:00 89 19 128/91 (103) 95 Room Air 12/27/20 03:00 85 18 97 Room Air 12/27/20 02:00 82 15 121/87 (98) 95 Room Air 12/27/20 01:00 90 12/27/20 01:00 92 18 120/80 (93) 96 Room Air 12/27/20 00:00 36.8 12/27/20 00:00 96 19 142/95 (111) 94 Room Air 12/26/20 23:59 95 Room Air 12/26/20 23:30 Room Air 12/26/20 23:00 96 24 127/70 (89) 96 Nasal Cannula 1.00 12/26/20 22:00 86 19 127/51 (76) 97 Nasal Cannula 1.00 12/26/20 21:43 96 Nasal Cannula 1.00 12/26/20 21:00 99 19 115/75 (88) 99 Nasal Cannula 2.00 12/26/20 20:00 99 Nasal Cannula 2.00 12/26/20 20:00 102 14 120/86 (97) 98 Nasal Cannula 2.00 12/26/20 19:30 36.2 12/26/20 19:00 100 12/26/20 19:00 96 26 107/75 (86) 97 Nasal Cannula 2.00 12/26/20 18:00 92 32 137/97 (110) 100 Nasal Cannula 2.00 12/26/20 17:37 Nasal Cannula 2.00 12/26/20 17:00 94 16 94/61 (72) 99 Nasal Cannula 4.00 12/26/20 16:45 99 Nasal Cannula 3.00 12/26/20 16:00 36.6 12/26/20 16:00 106 25 144/94 (111) 99 Nasal Cannula 4.00 12/26/20 15:00 101 11 131/74 (93) 100 Nasal Cannula 4.00 12/26/20 14:22 Nasal Cannula 3.00 12/26/20 14:00 107 25 111/76 (88) 96 Nasal Cannula 4.00 12/26/20 13:57 Nasal Cannula 4.00 12/26/20 13:00 106 18 178/123 (141) 91 Mechanical Ventilator 25.00 12/26/20 12:51 104 24 91 25 12/26/20 12:34 107 12/26/20 12:00 38.0 12/26/20 12:00 96 Mechanical Ventilator 25 12/26/20 12:00 133 23 149/99 (116) 94 Mechanical Ventilator 25.00 12/26/20 11:00 101 18 129/90 (103) 95 Mechanical Ventilator 25.00 I & O 12/27/20 07:00 Intake Total 3585 ml Output Total 3950 ml Balance -365 ml Height & Weight Height: 5'4.00" Weight: 200lbs. 0oz. [id number]; 45.08 BMI Method:Stated General Appearance: No Apparent Distress, Obese HEENT: PERRL/EOMI, Other (endotracheal tube in place) Neck: Normal Inspection, Supple Respiratory: Lungs Clear, Normal Breath Sounds, No Respiratory Distress, Other (intubated and mechanically ventilated) Cardiovascular: Regular Rate, Rhythm, No Edema, No Murmur Capillary Refill: Less Than 3 Seconds Peripheral Pulses: 1+ Dorsalis Pedis (R), 1+ Left Dors-Pedis (L) Extremity: Normal Inspection, No Pedal Edema Neurologic/Psychiatric: Other (sedated, awake, uncooperative, not following commands) Skin: Normal Color, Warm/Dry Results Lab Laboratory Tests 12/26/20 08:35 12/27/20 03:00 12/27/20 03:50 Assessment/Plan Assessment/Plan (Tele-ICU Physician , Progress Note ) Available chart/ vitals / labs / Images reviewed Video assessment done using teleICU camera, rest of exam as per RN Discussed with RN. Events overnight: Afebrile, I/O Consultants: Hospital course: 12/25-Transferred for Cannabis, meth., seroquel and BDP intoxication. intubated for airway protection at referring ER. 12/26 - EXTUBATED A/P Cannabis, meth., seroquel and BDP intoxication. - monnitor for arrithmias - OTc WNL - ?PSYCH EVAL - PER PCP Acute resp failure - EXTUBATED , RA Lines : , (Central Line Necessity Reviewed) Vázquez: OG: Analgesia: mophine Sedation: as above HOB Elevation: confirmed Nutrition: sales and service associate[o VTE Prophylaxis: hep Stress Ulcer Prophylaxis: ppi Glycemic Control: + Plans in collaboration with bedside consultants and IM MDs. Discussed with RN to reach out if any questions or concerns A total of 20 minutes of critical care time was devoted to this patient today, required to treat and/or prevent further deterioration of critical care condition ( as above ) . MONALISA HUBBARD MD Dec 27, 2020 10:43
[2020-12-27] MEDS ORDERED: NICOTINE 21 MG (NICODERM) PATCH TD ONE (12:00)
--- NOTE | 2020-12-27 21:43 | Discharge Summary ---
Discharge Summary Hospital Course Was the Problem List Reviewed?: Yes Problems/Dx: (1) Polysubstance overdose Status: Acute Qualifiers: Qualified Codes: T50.901A - Poisoning by unspecified drugs, medicaments and biological substances, accidental (unintentional), initial encounter Hospital Course Date of Admission: Dec 25, 2020 at 00:53 Admission Diagnosis : Polysubstance overdose requiring endotracheal intubation Family Physician/Provider: Denise,Local Physician Date of Discharge: 12/27/20 Discharge Diagnosis: Unintentional polysubstance overdose requiring endotracheal intubation Hospital Course: Tracey Dumont is a 35 year old female who presented with altered mental status and was admitted with polysubstance overdose requiring endotracheal intubation. She was on the ventilator for about 48 hours. She was then successfully weaned from her sedation and extubated. She was unsure exactly what happened but denied any suicidal ideations or intent. She thinks she had been doing methamphetamine and then used Seroquel to try to calm her down to sleep. Social work was consulted and provided her with information on available resources. She was encouraged to follow up with [facility] in [place]. She was discharged home in stable condition. Labs and Pending Lab Test: Laboratory Tests 12/27/20 01:08: Glucometer 96 12/27/20 03:00: Sodium Level 140, Potassium Level 4.0, Chloride Level 112H, Carbon Dioxide Level 14L, Anion Gap 14, Blood Urea Nitrogen < 2L, Creatinine 0.55L, Estimat Glomerular Filtration Rate > 60, BUN/Creatinine Ratio 4, Glucose Level 84, Calcium Level 7.6L, Phosphorus Level 2.0L, Magnesium Level 1.9 12/27/20 03:50: White Blood Count 11.0, Red Blood Count 3.87, Hemoglobin 10.4L, Hematocrit 33L, Mean Corpuscular Volume 86, Mean Corpuscular Hemoglobin 27, Mean Corpuscular Hemoglobin Concent 31L, Red Cell Distribution Width 14.5, Platelet Count 280, Mean Platelet Volume 10.6, Immature Granulocyte % (Auto) 0, Neutrophils (%) (Auto) 70, Lymphocytes (%) (Auto) 19, Monocytes (%) (Auto) 7, Eosinophils (%) (Auto) 4, Basophils (%) (Auto) 1, Neutrophils # (Auto) 7.7, Lymphocytes # (Auto) 2.0, Monocytes # (Auto) 0.7, Eosinophils # (Auto) 0.4H, Basophils # (Auto) 0.1, Immature Granulocyte # (Auto) 0.0 Microbiology 12/25/20 MRSA Screen - Final, Complete MRSA not isolated Home Meds Active No Active Prescriptions or Reported Medications Assessment/Pt Instructions Take medications as prescribed. Establish care with a PCP. Return with worsening symptoms. Discharge Planning: <30 minutes discharge planning Discharge Instructions Discharge Diet: No Restrictions Activity as Tolerated: Yes Discharge Physical Examination Vital Signs Vital Signs Date Time Temp Pulse Resp B/P (MAP) Pulse Ox O2 Delivery O2 Flow Rate FiO2 12/27/20 12:00 37.7 12/27/20 12:00 95 Room Air 12/27/20 11:00 91 20 121/77 (92) 12/26/20 23:00 1.00 12/26/20 12:51 25 General Appearance: No Apparent Distress, Obese Respiratory: Lungs Clear, Normal Breath Sounds, No Respiratory Distress Cardiovascular: Regular Rate, Rhythm, No Edema, No Murmur Gastrointestinal: Normal Bowel Sounds, Non Tender, Soft Extremity: Normal Inspection, Non Tender, No Pedal Edema Skin: Normal Color, Warm/Dry Neurologic/Psychiatric: Alert, Oriented x3, No Motor/Sensory Deficits, Depressed Affect Allergies: Coded Allergies: No Known Drug Allergies (Unverified , 11/04/18) Discharge Summary Date of Admission Dec 25, 2020 at 00:53 Date of Discharge Dec 27, 2020 at 13:45 Admission Diagnosis Polysubstance overdose Comfort Measures/ Time spent on discussion (min): 0 Discharge Diagnosis Polysubstance overdose Endotracheally intubated UDS positive for methamphetamine, amphetamine, benzodiazepine, tricyclics, cannabinoids Unclear if accidental or intentional overdose Required intubation on arrival Weaning sedation, possible extubation today Social work consulted, appreciate assistance Morbidly obese Clinically significant, no acute management needs DVT prophylaxis: Heparin (1) Polysubstance overdose Status: Acute Qualifiers: Qualified Codes: T50.901A - Poisoning by unspecified drugs, medicaments and biological substances, accidental (unintentional), initial encounter (2) Endotracheally intubated Status: Acute (3) Morbid obesity Status: Chronic SIRI INFANTE MD Dec 27, 2020 21:43
== END 2020-12-27 13:45 | disposition home or self-care (01) | DRG 917 ==
LOC: ER FS 18:59 → ICU 12-25 00:53
PROVIDERS: ADMIT Internal Medicine; ATTEND Internal Medicine
PROC: 5A1945Z Respiratory Ventilation, 24-96 Consecutive Hours (ICD-10-PCS; principal; 2020-12-24)
PROC: 0BH17EZ Insertion of Endotracheal Airway into Trachea, Via Natural or Artificial Opening (ICD-10-PCS; 2020-12-24)
DX: T43.011A Poisoning by tricyclic antidepressants, accidental (unintentional), initial encounter (principal); J96.00 Acute respiratory failure, unspecified whether with hypoxia or hypercapnia; E66.01 Morbid (severe) obesity due to excess calories; F41.9 Anxiety disorder, unspecified; F32.9 Major depressive disorder, single episode, unspecified; F15.129 Other stimulant abuse with intoxication, unspecified; E86.0 Dehydration
CPT/HCPCS: 31500; 36415; 51702; 71045; 80048; 80053; 80306; 80320; 80329; 81000; 82550; 82805; 82947; 83735; 84100; 84145; 84703; 85007; 85025; 85027; 87081; 93005; 93041; 94002; 94003; 94799